=== PATIENT | male | born 1935 | race Caucasian/White ===

== ENCOUNTER 2016-05-04 19:37 | Emergency (ER) | payer MEDICARE ==
[~2016-05-04] VITALS: Ht 182.9 cm; Wt 72.6 kg
[2016-05-04 19:37] VITALS: BP 160/82; PULSE 89; RESP 18; TEMP 98.4; O2SAT 99
[~2016-05-04 19:37] MED LIST: ASPI-1063 PO; CLOP75TA2 PO; COUMADIN; DICY10CA59 PO; FAMO20TA98 PO; FURO-150 PO; GLIP2.5T3 PO; HYDR-3111 PO; HYDR25TA4 PO; HYT1 PO; KEPPRA; LAM100 PO; LISINOPRIL; LOSA100T11 PO; METO25TA6 PO; METOPROLOL; MONT10TA25 PO; NOR10 PO; ONDA4TAB22 PO; OXYB10TA4 PO; POTA20TA83 PO; PRED5TAB PO; PRO40 PO; SIMV10TA6 PO; SIMVASTATIN; SOM350 PO; SYN75 PO; VITD2000 PO; [UNRECOGNIZED DRUG - CODE] PO
--- NOTE | 2016-05-04 20:04 | NUR ---
ER at bedside examining patient.
--- NOTE | 2016-05-04 20:10 | NUR ---
Pt received in bed, per report by skydiving instructor, pt was BIBA for evaluation s/p fall. Per report, pt was being assisted to the toilet, got up, lost his balance, and fell. He denied head trauma, loss of consciousness, nausea, vomiting, chest pain, shortness of breath, dizziness, headache. Per report, pt was transferred to [facility] 4 days ago for the same problem. Pt was not in any distress, made comfortable in bed, side rails up x 2.
--- NOTE | 2016-05-04 20:29 | NUR ---
blood drawn by phleb for ordered labs
[2016-05-04 20:32] LABS: BASOPHILS # (AUTO) 0.1 K/uL (0.0-0.2); BASOPHILS % (AUTO) 0.6 % (0.0-2.0); EOSINOPHILS # (AUTO) 0.3 K/uL (0.0-0.4); EOSINOPHILS % (AUTO) 2.1 % (0.0-4.0); HEMATOCRIT 36.3 % (36-54); HEMOGLOBIN 12.1 g/dL (14.0-18.0); LYMPHOCYTES # (AUTO) 2.6 K/uL (1.0-5.5); LYMPHOCYTES % (AUTO) 16.6 % (20.5-51.5); MEAN CORPUSCULAR HEMOGLOBIN 30 pg (27-31); MEAN CORPUSCULAR HGB CONC 33 % (32-36); MEAN CORPUSCULAR VOLUME 90 fL (79.0-98.0); MONOCYTES # (AUTO) 0.6 K/uL (0.0-1.0); MONOCYTES % (AUTO) 3.6 % (1.7-9.3); NEUTROPHILS # (AUTO) 12.1 K/uL (1.8-7.7); NEUTROPHILS % (AUTO) 77.1 % (40.0-70.0); RED BLOOD CELL COUNT(AUTO) 4.03 MIL/uL (4.2-6.2); RED CELL DISTRIBUTION WIDTH 14.3 % (9.0-15.0); WHITE BLOOD COUNT (AUTO) 15.7 K/uL (4.8-10.8)
[2016-05-04 20:35] LABS: PLATELET COUNT (AUTO) 93 K/uL (130-430)
[2016-05-04 20:44] LABS: ANION GAP 7 (5-15); CHLORIDE 102 mmol/L (98-107); CREATININE 2.43 mg/dL (0.55-1.30); GLUCOSE 188 mg/dL (70-99); POTASSIUM 4.4 mmol/L (3.5-5.1); SODIUM SERUM 138 mmol/L (136-145); UREA NITROGEN, BLOOD 45 mg/dL (8-21)
[2016-05-04 20:46] LABS: INR 1.1 (0.80-1.20); PROTHROMBIN TIME 11.8 SECS (9.5-12.5)
[2016-05-04 23:58] LABS: BILIRUBIN,URINE NEGATIVE (NEGATIVE); CLARITY/URINE CLEAR (CLEAR); COLOR,URINE YELLOW (YELLOW); GLUCOSE,URINE NEGATIVE (NEGATIVE); KETONES,URINE NEGATIVE (NEGATIVE); LEUKOCYTE ESTERASE ,URINE NEGATIVE (NEGATIVE); NITRITE, URINE NEGATIVE (NEGATIVE); PH,URINE 5.5 (5.0-8.0); PROTEIN URINE 2+ (NEGATIVE); UROBILINOGEN,URINE 0.2 (0.2-1.0)
[2016-05-04 23:59] LABS: BLOOD, URINE TRACE (NEGATIVE)
[2016-05-05 00:12] LABS: BACTERIA,URINE FEW /HPF (None Seen); MUCUS,URINE None Seen /LPF (None Seen); RBC,URINE 0-3 /HPF (0-3); URINE AMORPHOUS URATE 2+ /HPF (None Seen); WBC,URINE 0-3 /HPF (0-3)
[2016-05-05 01:49] VITALS: BP 147/67; PULSE 88; RESP 17; TEMP 98.2; O2SAT 99
--- NOTE | 2016-05-05 01:49 | NUR ---
Patient/family given written and verbal discharge instructions and verbalizes understanding. ER MD discussed with patient/family the results and treatment provided. Patient in stable condition. ID arm band removed. No Rx given. Patient/family educated on pain management and to follow up with PMD. Pain Scale 0/10. Opportunity for questions provided and answered.
== END 2016-05-05 01:49 | disposition home or self-care (01) ==
LOC: SED 19:37
DX: Z04.3 Encounter for examination and observation following other accident (principal); N18.9 Chronic kidney disease, unspecified; D64.9 Anemia, unspecified; D69.6 Thrombocytopenia, unspecified; E11.22 Type 2 diabetes mellitus with diabetic chronic kidney disease; I12.9 Hypertensive chronic kidney disease with stage 1 through stage 4 chronic kidney disease, or unspecified chronic kidney disease; C61 Malignant neoplasm of prostate; Z88.8 Allergy status to other drugs, medicaments and biological substances; Z86.73 Personal history of transient ischemic attack (TIA), and cerebral infarction without residual deficits; W18.39XA Other fall on same level, initial encounter; Y93.89 Activity, other specified; Y99.8 Other external cause status; Y92.89 Other specified places as the place of occurrence of the external cause
CPT/HCPCS: 36415; 80048; 81000; 85025; 85610; 85730; 93005; 99285; J7030

== ENCOUNTER 2016-06-24 10:45 | Emergency (ER) | payer MEDICARE ==
[~2016-06-24] VITALS: Ht 177.8 cm; Wt 68.0 kg
[~2016-06-24 10:45] MED LIST changes: -ASPI-1063 PO; -COUMADIN; -HYT1 PO; -KEPPRA; -LISINOPRIL; -METOPROLOL; -SIMVASTATIN
[2016-06-24 10:49] VITALS: BP_SYST 168
[2016-06-24 11:07] LABS: BASOPHILS # (AUTO) 0.1 K/uL (0.0-0.2); BASOPHILS % (AUTO) 1.1 % (0.0-2.0); EOSINOPHILS # (AUTO) 0.3 K/uL (0.0-0.4); EOSINOPHILS % (AUTO) 3.1 % (0.0-4.0); HEMATOCRIT 40.9 % (36-54); HEMOGLOBIN 13.4 g/dL (14.0-18.0); LYMPHOCYTES # (AUTO) 3.3 K/uL (1.0-5.5); LYMPHOCYTES % (AUTO) 33.8 % (20.5-51.5); MEAN CORPUSCULAR HEMOGLOBIN 29 pg (27-31); MEAN CORPUSCULAR HGB CONC 33 % (32-36); MEAN CORPUSCULAR VOLUME 88 fL (79.0-98.0); MONOCYTES # (AUTO) 0.3 K/uL (0.0-1.0); MONOCYTES % (AUTO) 2.6 % (1.7-9.3); NEUTROPHILS # (AUTO) 5.8 K/uL (1.8-7.7); NEUTROPHILS % (AUTO) 59.4 % (40.0-70.0); PLATELET COUNT (AUTO) 120 K/uL (130-430); RED BLOOD CELL COUNT(AUTO) 4.65 MIL/uL (4.2-6.2); RED CELL DISTRIBUTION WIDTH 14.6 % (9.0-15.0); WHITE BLOOD COUNT (AUTO) 9.8 K/uL (4.8-10.8)
[2016-06-24 11:26] LABS: INR 1.2 (0.80-1.20); PROTHROMBIN TIME 12.9 SECS (9.5-12.5)
[2016-06-24] MEDS ORDERED: METR500T PO (11:34)
[2016-06-24] MEDS ORDERED: HYT1 PO (11:35)
[2016-06-24] MEDS ORDERED: VITA1CAP PO (11:35)
[2016-06-24] MEDS ORDERED: ALEN10TA6 PO (11:35)
[2016-06-24] MEDS ORDERED: ASPI81TA2 PO (11:35)
[2016-06-24] MEDS ORDERED: GABA-531 PO (11:35)
[2016-06-24] MEDS ORDERED: DONE5TAB3 PO (11:35)
[2016-06-24] MEDS ORDERED: FERR-57 PO (11:35)
[2016-06-24] MEDS ORDERED: LOSA50TA3 PO (11:35)
[2016-06-24] MEDS ORDERED: PRAV20TA PO (11:35)
[2016-06-24] MEDS ORDERED: METO25TA6 PO (11:35)
[2016-06-24 11:52] LABS: BILIRUBIN,URINE NEGATIVE (NEGATIVE); CLARITY/URINE CLEAR (CLEAR); COLOR,URINE YELLOW (YELLOW); GLUCOSE,URINE NEGATIVE (NEGATIVE); KETONES,URINE NEGATIVE (NEGATIVE); LEUKOCYTE ESTERASE ,URINE 1+ (NEGATIVE); NITRITE, URINE POSITIVE (NEGATIVE); PROTEIN URINE 1+ (NEGATIVE); UROBILINOGEN,URINE 0.2 (0.2-1.0)
[2016-06-24 11:53] LABS: BLOOD, URINE TRACE (NEGATIVE)
[2016-06-24 11:57] LABS: ANION GAP 15 (5-15); CALCIUM 8.9 mg/dL (8.4-11.0); CHLORIDE 101 mmol/L (98-107); CREATININE 2.28 mg/dL (0.55-1.30); GLUCOSE 266 mg/dL (70-99); POTASSIUM 4.3 mmol/L (3.5-5.1); SODIUM SERUM 138 mmol/L (136-145); UREA NITROGEN, BLOOD 32 mg/dL (8-21)
[2016-06-24 12:02] LABS: ALANINE AMINOTRANSFERASE 37 U/L (12-78); ALBUMIN 3.4 g/dL (3.4-4.8); ASPARTATE AMINOTRANSFERASE 48 U/L (10-37); CHOLESTEROL 140 mg/dL (<200); HDL CHOLESTEROL 63 mg/dL (>45); LDL CHOLESTEROL 57 mg/dL (<100); TOTAL BILIRUBIN 0.5 mg/dL (0.0-1.0); TOTAL PROTEIN, SERUM 6.6 g/dL (6.4-8.3); TRIGLYCERIDES 88 mg/dL (30-150)
[2016-06-24 12:11] LABS: BACTERIA,URINE MODERATE /HPF (None Seen); MUCUS,URINE 1+ /LPF (None Seen)
[2016-06-24] MEDS ORDERED: LORazepam 2 MG/ML VIAL (FOR ER USE) IVP ONE (12:30)
[2016-06-24] MEDS ORDERED: LEVOFLOXACIN 500 MG/D5W 100 ML IV ONE (12:30)
[2016-06-24 14:51] VITALS: BP_SYST 147
== END 2016-06-24 14:51 | disposition short-term general hospital (02) ==
LOC: SED 10:45
DX: G40.89 Other seizures (principal); N39.0 Urinary tract infection, site not specified; E11.9 Type 2 diabetes mellitus without complications; I10 Essential (primary) hypertension; Z88.5 Allergy status to narcotic agent; Z88.8 Allergy status to other drugs, medicaments and biological substances; Z86.79 Personal history of other diseases of the circulatory system
CPT/HCPCS: 36415; 70450; 71010; 80053; 80061; 81000; 83605; 83880; 84484; 85025; 85610; 85730; 87040; 87086; 87186; 93005; 96365; 96375; 99285; J1956; J2060

== ENCOUNTER 2016-09-30 22:34 | Emergency (ER) | payer MEDICARE ==
[~2016-09-30] VITALS: Ht 182.9 cm; Wt 77.1 kg
[2016-09-30 22:34] VITALS: BP_SYST 135
[~2016-09-30 22:34] MED LIST changes: +ALEN10TA6 PO; +ASPI81TA2 PO; -DICY10CA59 PO; +DONE5TAB3 PO; +FERR-57 PO; -FURO-150 PO; +GABA-531 PO; -HYDR-3111 PO; -HYDR25TA4 PO; +HYT1 PO; -LOSA100T11 PO; +LOSA50TA3 PO; +METR500T PO; -MONT10TA25 PO; -NOR10 PO; -ONDA4TAB22 PO; -OXYB10TA4 PO; -POTA20TA83 PO; +PRAV20TA PO; -PRED5TAB PO; -PRO40 PO; -SIMV10TA6 PO; -SOM350 PO; -SYN75 PO; +VITA1CAP PO; -[UNRECOGNIZED DRUG - CODE] PO
[2016-09-30] MEDS ORDERED: LORazepam 2 MG/ML VIAL (FOR ER USE) IVP ONE (22:45)
[2016-09-30] MEDS ORDERED: NACL 0.9% 1,000 ML IV ONE (22:45)
[2016-09-30] MEDS ORDERED: LORazepam 2 MG/ML VIAL (FOR ER USE) ONE (22:59)
[2016-09-30 23:10] LABS: BASOPHILS # (AUTO) 0.1 K/uL (0.0-0.2); BASOPHILS % (AUTO) 0.6 % (0.0-2.0); EOSINOPHILS # (AUTO) 0.5 K/uL (0.0-0.4); EOSINOPHILS % (AUTO) 4.1 % (0.0-4.0); HEMATOCRIT 37.5 % (36-54); HEMOGLOBIN 12.3 g/dL (14.0-18.0); LYMPHOCYTES # (AUTO) 3.1 K/uL (1.0-5.5); LYMPHOCYTES % (AUTO) 24.7 % (20.5-51.5); MEAN CORPUSCULAR HEMOGLOBIN 29 pg (27-31); MEAN CORPUSCULAR HGB CONC 33 % (32-36); MEAN CORPUSCULAR VOLUME 89 fL (79.0-98.0); MONOCYTES # (AUTO) 0.5 K/uL (0.0-1.0); MONOCYTES % (AUTO) 3.6 % (1.7-9.3); NEUTROPHILS # (AUTO) 8.4 K/uL (1.8-7.7); PLATELET COUNT (AUTO) 152 K/uL (130-430); RED BLOOD CELL COUNT(AUTO) 4.23 MIL/uL (4.2-6.2); RED CELL DISTRIBUTION WIDTH 14.4 % (9.0-15.0); WHITE BLOOD COUNT (AUTO) 12.6 K/uL (4.8-10.8)
[2016-09-30 23:15] LABS: ANION GAP 12 (5-15); CALCIUM 8.7 mg/dL (8.4-11.0); CHLORIDE 104 mmol/L (98-107); GLUCOSE 162 mg/dL (70-99); SODIUM SERUM 142 mmol/L (136-145); UREA NITROGEN, BLOOD 39 mg/dL (8-21)
[2016-09-30 23:16] LABS: CREATININE 1.98 mg/dL (0.55-1.30)
[2016-09-30 23:27] LABS: ASPARTATE AMINOTRANSFERASE 18 U/L (10-37); TOTAL BILIRUBIN 0.3 mg/dL (0.0-1.0)
[2016-09-30 23:28] LABS: ALANINE AMINOTRANSFERASE 18 U/L (12-78); ALBUMIN 3.2 g/dL (3.4-4.8); TOTAL PROTEIN, SERUM 6.5 g/dL (6.4-8.3)
[2016-09-30] MEDS ORDERED: ADENOSINE 6MG/2ML VIAL IVP ONE ×2 (23:30→23:45)
[2016-09-30] MEDS ORDERED: ADENOSINE 6MG/2ML VIAL ONE ×2 (23:32→23:45)
[2016-09-30] MEDS ORDERED: METOPROLOL TARTRATE 5 MG/5 ML VIAL IVP ONE (23:45)
[2016-09-30] MEDS ORDERED: METOPROLOL TARTRATE 5 MG/5 ML VIAL ONE (23:54)
[2016-10-01] MEDS ORDERED: METOPROLOL TARTRATE 5 MG/5 ML VIAL IVP ONE (00:15)
[2016-10-01] MEDS ORDERED: METOPROLOL TARTRATE 5 MG/5 ML VIAL ONE (00:18)
[2016-10-01 01:45] VITALS: BP_SYST 150
== END 2016-10-01 01:45 | disposition short-term general hospital (02) ==
LOC: SED 22:34
DX: R56.9 Unspecified convulsions (principal); I47.1 Supraventricular tachycardia; E11.9 Type 2 diabetes mellitus without complications; I10 Essential (primary) hypertension; Z88.6 Allergy status to analgesic agent; Z88.8 Allergy status to other drugs, medicaments and biological substances; Z79.899 Other long term (current) drug therapy
CPT/HCPCS: 36415; 51702; 70450; 71010; 80053; 84484; 85025; 93005; 96361; 96374; 96375; 96376; 99291; J0153; J2060; J3490 ×2; J7030; 99285